=== PATIENT | male | born 1995 | race Caucasian/White ===

== ENCOUNTER 2017-06-29 13:38 | Emergency (ER) | payer BC ==
[2017-06-29 13:45] VITALS: TEMP 98.1
--- NOTE | 2017-06-29 13:50 | EDPHY ---
H & P Stated Complaint: swollen and painful testicle since , denies trauma Time Seen by Provider: 06/29/17 13:49 HPI/ROS: CHIEF COMPLAINT: Left testicular pain and swelling HISTORY OF PRESENT ILLNESS: 21-year-old male presents emergency department complaining of left testicular pain and swelling that started 4 days ago. Patient denies trauma. He reports the pain is mild, worse with movement and palpation. He denies any penile discharge. He is sexually active. No history of STDs. Patient denies abdominal pain, no nausea, vomiting or diarrhea. No fevers. REVIEW OF SYSTEMS: A comprehensive 10 point review of systems is otherwise negative aside from elements mentioned in the history of present illness. Source: Patient Exam Limitations: No limitations - Personal History Current Tetanus/Diphtheria Vaccine: Unsure Current Tetanus Diphtheria and Acellular Pertussis (TDAP): Unsure - Medical/Surgical History Hx Asthma: No Hx Chronic Respiratory Disease: No Hx Diabetes: No Hx Cardiac Disease: No Hx Renal Disease: No Hx Cirrhosis: No Hx Alcoholism: No Hx HIV/AIDS: No Hx Splenectomy or Spleen Trauma: No Other PMH: wisdom teeth, sx broken nose repair - Social History Smoking Status: Never smoked - Physical Exam Exam: Physical Exam Gen: Alert and Oriented, NAD HEENT: PERRL, moist mucous membranes NECK: no meningismus CV: regular rate and regular rhythm PULM: CTAB, no wheezes ABDOMEN: soft, non tender to palpation, BS present : normal circumcised penis, no ureteral discharge, left scrotum with erythema , mild swelling and induration, tenderness to palpation, no masses. Normal right scrotal exam. BACK: No CVA tenderness NEURO: Neurologically grossly intact EXTREMITIES: normal appearing SKIN: no rash or break in skin on exposed skin PSYCH: answers questions appropriately. Constitutional: Initial Vital Signs Temperature (C) 36.7 C 06/29/17 13:40 Heart Rate 73 06/29/17 13:40 Respiratory Rate 16 06/29/17 13:40 Blood Pressure 140/81 H 06/29/17 13:40 O2 Sat (%) 98 06/29/17 13:40 O2 Delivery Mode Room Air Allergies/Adverse Reactions: No Known Allergies Allergy (Verified 06/29/17 13:41) Home Medications: Medication Instructions Recorded Doxycycline Hyclate 100 mg PO BID 14 Days tablet 06/29/17 Medical Decision Making - Diagnostics Imaging Results: Imaging Impressions Testicular Ultrasound 06/29/17 13:50 Impression: Hyperemic left epididymal tail, suspicious for epididymitis. Findings discussed with Jeaneth Hopkins NP 06/29/2017 at 15:05. Imaging: Discussed imaging studies w/ resident advisor Radiologist ED Course/Re-evaluation: Testicular Ultrasound shows evidence of epididymitis. Patient will be treated with 250 mg of IM Rocephin and a prescription for doxycycline. Chlamydia and gonorrhea testing is pending. Patient will call in 48 hours for these results. The patient is given return precautions. Differential Diagnosis: Diagnosis considered but not limited to epididymitis, orchitis, testicular torsion, STD, hernia - Data Points Laboratory Results: 06/29/17 06/29/17 14:20 14:20 Urine Color YELLOW Urine Appearance CLEAR Urine pH 6.0 (5.0-7.5) Ur Specific [place] 1.016 (1.002-1.030) Urine Protein NEGATIVE (NEGATIVE) Urine Ketones NEGATIVE (NEGATIVE) Urine Blood NEGATIVE (NEGATIVE) Urine Nitrate NEGATIVE (NEGATIVE) Urine Bilirubin NEGATIVE (NEGATIVE) Urine Urobilinogen NEGATIVE EU EU (0.2-1.0) Ur Leukocyte Esterase NEGATIVE (NEGATIVE) Urine Glucose NEGATIVE (NEGATIVE) C.trachomatis RNA (TMA) Pending N.gonorrhoeae RNA (TMA) Pending Departure - Departure Disposition: Home, Routine, Self-Care Clinical Impression: Epididymitis, left Condition: Good Instructions: Epididymitis (ED) Additional Instructions: Take 100mg of doxycycline twice daily for 14 days. Ice to your scrotum. Wear supportive underwear. Take 600mg of ibuprofen every 8 hours with food for 5 days as needed for pain. Call the ED in 48 hours for your chlamydia and gonorrhea results- [phone]. Return to the emergency department for worsening symptoms, new symptoms or concerns. No intercourse until you get the results of your tests. If these are positive your partner needs to be treated as well and no intercourse until antibiotics are finished and you have no symptoms. Referrals: [facility],. [Clinic] - As per Instructions Prescriptions: Doxycycline Hyclate 100 mg PO BID 14 Days tablet
[2017-06-29 14:44] LABS: COLOR YELLOW; LEUKOCYTE ESTERASE,URINE NEGATIVE (NEGATIVE); NITRITE,URINE NEGATIVE (NEGATIVE)
[2017-06-29 14:48] VITALS: PULSE 68
[2017-06-29] MEDS ORDERED: CEFTRIAXONE IM 350 MG/ML SYRINGE IM ONE (15:23)
[2017-06-29 16:11] VITALS: BP 118/71; RESP 14; O2SAT 96
[2017-06-30 11:54] LABS: CHLAMYDIA AMPLIFICATION GENPRB POSITIVE (NEGATIVE)
== END 2017-06-29 16:11 | disposition home or self-care (01) ==
DX: N45.1 Epididymitis (principal)
CPT/HCPCS: J0696